=== PATIENT | male | born 1995 | race Caucasian/White ===

== ENCOUNTER 2018-01-25 14:53 | Inpatient (IN) | payer MEDICAID ==
[~2018-01-25] VITALS: Ht 177.8 cm; Wt 61.8 kg
[2018-01-25] MEDS ORDERED: HALOPERIDOL 5 MG TABLET PO PRN (18:00)
[2018-01-25] MEDS ORDERED: ZOLPIDEM TARTRATE 10 MG TABLET PO PRN (18:00)
[2018-01-25 18:15] VITALS: BP 135/75
[2018-01-25] MEDS ORDERED: MAGNESIUM HYDROXIDE SUSPENSION 30 ML UDCUP PO PRN (19:00)
[2018-01-25] MEDS ORDERED: DOCUSATE SODIUM 100 MG CAPSULE PO PRN (19:00)
[2018-01-25] MEDS ORDERED: CloNIDine HCL 0.1 MG TABLET PO PRN (19:00)
[2018-01-25] MEDS ORDERED: MAG HYDROX/AL HYDROX/SIMETH ES 30 ML SUSPENSION UDCUP PO PRN (19:00)
[2018-01-25] MEDS ORDERED: ALBUTEROL SULFATE HFA 90 MCG/PUFF 8 GM INHALER IH PRN (19:00)
[2018-01-25] MEDS ORDERED: ACETAMINOPHEN 325 MG TABLET PO PRN (19:00)
[2018-01-25] MEDS ORDERED: ONDANSETRON HCL 4 MG TABLET PO PRN (19:00)
[2018-01-25] MEDS ORDERED: PETROLATUM,WHITE 71 GM JELLY TP PRN (19:00)
[2018-01-25] MEDS ORDERED: GuaiFENesin/D-METHORPHAN [SUGAR-FREE] 200-20MG/10 ML SYRUP UDCUP PO PRN (19:00)
[2018-01-25] MEDS ORDERED: NICOTINE 14 MG/24 HOUR PATCH TD PRN (19:00)
[2018-01-25] MEDS ORDERED: IBUPROFEN 400 MG TABLET PO PRN (19:00)
[2018-01-25] MEDS ORDERED: LOPERAMIDE HCL 2 MG CAPSULE PO PRN (19:00)
[2018-01-26 05:23] VITALS: BP 128/78
[2018-01-26 07:27] LABS: BASOPHILS % (AUTO) 0.4 % (0.0-2.0); EOSINOPHILS % (AUTO) 0.4 % (1.0-6.0); HEMOGLOBIN 16.3 g/dL (13.5-17.5); LYMPHOCYTES # (AUTO) 4.2 K/uL (1.0-4.8); LYMPHOCYTES % (AUTO) 29.2 % (22.0-44.0); MEAN CORPUSCULAR HEMOGLOBIN 28.3 pg (26.0-34.0); MEAN CORPUSCULAR HGB CONC 33.3 G/dL (31.0-37.0); MEAN CORPUSCULAR VOLUME 85 fL (80-100); MONOCYTES # (AUTO) 1.5 K/uL (0.1-1.0); MONOCYTES % (AUTO) 10.3 % (2.0-9.0); NEUTROPHILS # (AUTO) 8.5 K/uL (1.8-7.7); NEUTROPHILS % (AUTO) 59.7 % (40.0-70.0); PLATELET COUNT (AUTO) 256 K/uL (150-450); RED BLOOD CELL COUNT(AUTO) 5.77 MIL/uL (4.50-5.90); RED CELL DISTRIBUTION WIDTH 14.9 % (11.5-14.5)
[2018-01-26 08:02] LABS: HEMOGLOBIN A1C 5.5 % (4.5-6.2)
[2018-01-26 08:04] LABS: ALBUMIN 4.9 g/dL (3.4-5.0); BILIRUBIN,TOTAL 1.6 mg/dL (0.1-1.0); CALCIUM, TOTAL 9.5 mg/dL (8.8-10.5); CHOL/HDL RATIO 2.7 (4.2-7.3); CREATININE 1.59 mg/dL (0.60-1.30); FREE T4 (FREE THYROXINE) 1.11 ng/dL (0.76-1.46); POTASSIUM 3.6 mmol/L (3.5-5.1); THYROID STIMULATING HORMONE 2.41 uIU/mL (0.36-3.74)
[2018-01-26 08:51] VITALS: BP 116/65
[2018-01-26 16:13] VITALS: BP 138/78
[2018-01-26] MEDS: LORazepam 2 MG TABLET PO PRN (16:52)
[2018-01-26] MEDS: OLANZapine 5 MG TABLET PO SCH (20:35)
[2018-01-27 05:06] VITALS: BP 110/68
[2018-01-27 08:00] LABS: BASOPHILS % (AUTO) 0.4 % (0.0-2.0); EOSINOPHILS % (AUTO) 1.1 % (1.0-6.0); HEMATOCRIT 46.2 % (41-53); HEMOGLOBIN 15.7 g/dL (13.5-17.5); LYMPHOCYTES # (AUTO) 2.5 K/uL (1.0-4.8); LYMPHOCYTES % (AUTO) 32.8 % (22.0-44.0); MEAN CORPUSCULAR HEMOGLOBIN 28.3 pg (26.0-34.0); MEAN CORPUSCULAR HGB CONC 33.9 G/dL (31.0-37.0); MEAN CORPUSCULAR VOLUME 84 fL (80-100); MONOCYTES # (AUTO) 0.8 K/uL (0.1-1.0); MONOCYTES % (AUTO) 10.6 % (2.0-9.0); NEUTROPHILS # (AUTO) 4.1 K/uL (1.8-7.7); NEUTROPHILS % (AUTO) 55.1 % (40.0-70.0); PLATELET COUNT (AUTO) 207 K/uL (150-450); RED BLOOD CELL COUNT(AUTO) 5.54 MIL/uL (4.50-5.90); RED CELL DISTRIBUTION WIDTH 14.5 % (11.5-14.5)
[2018-01-27] MEDS: FLUoxetine HCL 20 MG CAPSULE PO SCH (08:40)
[2018-01-27 09:27] VITALS: BP 126/83
[2018-01-27] MEDS: LORazepam 2 MG TABLET PO PRN (16:59)
[2018-01-27 17:23] VITALS: BP 125/81
[2018-01-27] MEDS: OLANZapine 5 MG TABLET PO SCH (20:39)
[2018-01-28 05:56] VITALS: BP 115/85
[2018-01-28 08:11] VITALS: BP 146/98
[2018-01-28] MEDS: FLUoxetine HCL 20 MG CAPSULE PO SCH (08:45)
[2018-01-28 16:00] VITALS: BP 122/78
[2018-01-28] MEDS: OLANZapine 5 MG TABLET PO SCH (20:42)
[2018-01-29 01:54] VITALS: BP 110/82
[2018-01-29] MEDS: FLUoxetine HCL 20 MG CAPSULE PO SCH (08:29)
[2018-01-29 08:54] VITALS: BP 139/84
[2018-01-29 16:00] VITALS: BP 125/83
[2018-01-29] MEDS: LORazepam 2 MG TABLET PO PRN (16:20)
[2018-01-29] MEDS: OLANZapine 5 MG TABLET PO SCH (20:13)
[2018-01-30 02:28] VITALS: BP 126/82
[2018-01-30 08:10] VITALS: BP 133/69
[2018-01-30] MEDS: FLUoxetine HCL 20 MG CAPSULE PO SCH (08:20)
[2018-01-30] MEDS ORDERED: OLAN5TAB2 PO (08:37)
[2018-01-30] MEDS ORDERED: FLUO-191 PO (08:37)
[2018-01-30 09:24] LABS: ANION GAP 6 mmol/L (8-16); CALCIUM, TOTAL 9.3 mg/dL (8.8-10.5); CARBON DIOXIDE 32 mmol/L (22-29); CHLORIDE 102 mmol/L (98-107); CREATININE 0.94 mg/dL (0.60-1.30); GLOMERULAR FILTR. RATE CALC > 60 mL/min (>60); GLUCOSE,RANDOM 82 mg/dL (70-110); POTASSIUM 4.3 mmol/L (3.5-5.1); SODIUM SERUM 140 mmol/L (136-145); UREA NITROGEN, BLOOD 16 mg/dL (7-18)
== END 2018-01-30 13:29 | disposition home or self-care (01) | DRG 750 ==
LOC: B3A 17:49
PROVIDERS: ADMIT Psychiatry & Neurology Psychiatry; ATTEND Psychiatry & Neurology Psychiatry
DX: F25.0 Schizoaffective disorder, bipolar type (principal); N17.9 Acute kidney failure, unspecified; D72.829 Elevated white blood cell count, unspecified; F19.90 Other psychoactive substance use, unspecified, uncomplicated; R45.87 Impulsiveness; F41.9 Anxiety disorder, unspecified; K59.00 Constipation, unspecified; G47.00 Insomnia, unspecified; F10.10 Alcohol abuse, uncomplicated; Z28.21 Immunization not carried out because of patient refusal
CPT/HCPCS: 83036; 84439; 84443; 87081; 90686